=== PATIENT | male | born 1970 | race Caucasian/White ===

== ENCOUNTER 2018-10-10 21:29 | Inpatient (IN) | payer OTHER ==
[~2018-10-10] VITALS: Ht 170.2 cm; Wt 69.9 kg
[2018-10-10] MEDS ORDERED: MAGNESIUM HYDROXIDE 30 ML UDC PO PRN (23:00)
[2018-10-10] MEDS ORDERED: HYDROCODONE/APAP 5/325MG 1 EACH TABLET PO PRN (23:00)
[2018-10-10] MEDS ORDERED: MAG HYDROX/AL HYDROX/SIMETH 30 ML UDC PO PRN (23:00)
[2018-10-10] MEDS ORDERED: TEMAZEPAM 15 MG CAPSULE PO PRN (23:00)
[2018-10-10] MEDS ORDERED: HYDROCODONE/APAP 10/325MG 1 EA TABLET PO PRN (23:00)
[2018-10-10] MEDS ORDERED: ACETAMINOPHEN 325 MG TABLET PO PRN (23:00)
[2018-10-10] MEDS ORDERED: DEXTROSE 50%-WATER 50 ML DISP.SYRIN IV PRN (23:00)
[2018-10-10 23:20] VITALS: BP 139/95
--- NOTE | 2018-10-10 23:20 | NUR ---
RN ADMITTING NOTES RECEIVED PT DIRECT ADMIT FROM [facility] VIA GURNEY ACCOMPANIED BY 2 HAND PLUG SHAPER. PT AWAKE ALERT ORIENTEDX4, BREATHING EVEN AND UNLABORED ON ROOM AIR. IV ACCESS ON THE R FA 20G, AND L WRIST 22G. COMPLAINS OF ABDOMINAL PAIN "FROM VOMITING", SKIN ASSESSMENT COMPLETED. BED IN LOWEST LOCKED POSITION, CALL LIGHT WITHIN REACH AT ALL TIMES WILL CONTINUE TO MONITOR FREQUENTLY
[2018-10-11] MEDS ORDERED: INSU100I26 SQ (00:02)
[2018-10-11] MEDS ORDERED: ONDA4TAB5 PO (00:08)
[2018-10-11] MEDS ORDERED: INSU100C10 SQ (00:08)
[2018-10-11] MEDS ORDERED: ZOLP10TA2 PO (00:08)
[2018-10-11] MEDS ORDERED: GABA-536 PO (00:08)
[2018-10-11] MEDS ORDERED: HYDR-4384 PO (00:08)
[2018-10-11] MEDS ORDERED: ESCI10TA PO (00:08)
[2018-10-11] MEDS ORDERED: PANT20TA2 PO (00:08)
[2018-10-11] MEDS ORDERED: METO-295 PO (00:08)
[2018-10-11] MEDS: ONDANSETRON HCL/PF 4 MG/2 ML VIAL IVP PRN ×2 (00:45→11:56)
[2018-10-11] MEDS: IV NS 0.9% 1,000 ML IV PRN ×2 (00:46→10:39)
[2018-10-11 01:06] VITALS: BP 139/95
[2018-10-11] MEDS: HYDROMORPHONE 1 MG/1 ML DISP.SYRIN IV PRN ×3 (02:45→13:11)
[2018-10-11] MEDS ORDERED: HYDROCODONE/APAP 10/325MG 1 EA TABLET PO PRN (03:00)
--- NOTE | 2018-10-11 05:57 | NUR ---
GB CHECKED- 42- RECHECKED- 38, D50 ADMINISTERED, 10 MINUTES LATER BG 156, WILL CONTINUE TO MONITOR Addendum: 10/11/18 at 0615 by CYNTHIA CAMPUZANO RN BG*
--- NOTE | 2018-10-11 06:15 | NUR ---
RN MS CLOSING NOTES PT REMAINS IN BED, AWAKE ALERT ORIENTED X4, BREATHING EVEN AND UNLABORED ON ROOM AIR. NO COMPLIANT OF DISCOMFORT AT THE MOMENT. IV ACCESS SITES INTACT AND PATENT WITH NS @100ML/HR/ BED IN LOWEST LOCKED POSITION, CALL LIGHT WITHIN REACH AT ALL TIMES, WILL ENDORSE TO DAY NURSE FOR DUANE
[2018-10-11 06:26] LABS: BASOPHILS # (AUTO) 0.1 /CMM (0.0-0.2); BASOPHILS % (AUTO) 0.8 % (0.0-2.0); EOSINOPHILS % (AUTO) 2.6 % (0.0-6.0); HEMATOCRIT 32 % (39-51); HEMOGLOBIN 10.8 g/dL (13.5-17.5); LYMPHOCYTES # (AUTO) 2.4 /CMM (0.8-4.8); LYMPHOCYTES % (AUTO) 37.4 % (20.0-44.0); MEAN CORPUSCULAR HGB CONC 34 g/dl (31.0-36.0); MEAN CORPUSCULAR VOLUME 94 fL (80-96); MONOCYTES # (AUTO) 0.4 /CMM (0.1-1.30); MONOCYTES % (AUTO) 6.8 % (2.0-12.0); NEUTROPHILS # (AUTO) 3.4 /CMM (1.8-8.9); NEUTROPHILS % (AUTO) 52.4 % (43.0-81.0); PLATELET COUNT (AUTO) 156 /CMM (150-450); WHITE BLOOD COUNT (AUTO) 6.5 K/uL (4.3-11.0)
[2018-10-11] MEDS: BLOOD SUGAR DIAGNOSTIC 1 EACH STRIP IN SCH ×3 (06:50→17:08)
[2018-10-11 06:52] LABS: THYROID STIMULATING HORMONE 0.731 uIU/mL (0.358-3.74)
--- NOTE | 2018-10-11 07:20 | NUR ---
MS/RN OPENING NOTE PATIENT IN BED IN STABLE CONDITION. A/O X 4. NO SIGNS OF ACUTE DISTRESS. NO COMPLAIN OF PAIN OR DISCOMFORT AT THIS TIME . ALL NEEDS ATTENDED TO. CALL LIGHT WITHIN REACH. WILL CONTINUE TO MONITOR TO ENSURE SAFETY.
[2018-10-11 07:25] LABS: CREATININE 0.5 mg/dL (0.6-1.3); MAGNESIUM 1.9 mg/dL (1.8-2.4); PHOSPHORUS 2.1 mg/dL (2.5-4.9); POTASSIUM 3.9 mmol/L (3.5-5.1)
--- NOTE | 2018-10-11 07:38 | NUR ---
MS/RN RECEIVED CALL FROM JAD FROM LAB AND HE NOTIFIED PATIENT GLUCOSE NOTED 45LOW. RECHECKED BLOOD SUGAR AT BEDSIDE NOTED WITH BS 124. MD NOTIFIED. WILL CONTINUE TO MONITOR TO ENSURE SAFETY.
[2018-10-11 08:00] VITALS: BP 125/89
[2018-10-11 08:10] LABS: EOSINOPHILS % (MANUAL) 3 % (0-4); LYMPHOCYTES % (MANUAL) 30 % (16-48); MONOCYTES % (MANUAL) 9 % (0-11.0); NEUTROPHILS % (MANUAL) 58 (42-76)
[2018-10-11] MEDS ORDERED: GABAPENTIN 100 MG CAPSULE PO SCH (09:00)
[2018-10-11] MEDS ORDERED: ESCITALOPRAM OXALATE (10 MG) 10 MG TABLET PO SCH (09:00)
[2018-10-11] MEDS ORDERED: GABAPENTIN 400 MG CAPSULE PO SCH (09:00)
[2018-10-11] MEDS: GABAPENTIN 400 MG CAPSULE PO SCH ×2 (09:15→17:08)
[2018-10-11] MEDS: GABAPENTIN 100 MG CAPSULE PO SCH ×2 (09:16→17:08)
[2018-10-11] MEDS: INSULIN REGULAR, HUMAN 100 UNIT/ML 3 ML VIAL SQ PRN ×2 (11:57→17:11)
[2018-10-11] MEDS ORDERED: K PHOS NEUTRAL 250 MG TABLET PO ONE (12:00)
--- NOTE | 2018-10-11 13:45 | NUR ---
MS/RN SEEN AND EXAMINED BY DR ROMERO WITH ORDERS TO DC PATIENT HOME TODAY. PATIENT AWARE.
--- NOTE | 2018-10-11 18:57 | NUR ---
MS/LASTEX OPERATOR PATIENT DISCHARGE HOME IN STABLE CONDITION. A/O X 4. NO SIGNS OF ACUTE DISTRESS. NO COMPLAIN OF PAIN OR DISCOMFORT. DISCHARGE EDUCATION AND TEACHING PROVIDED, MADE AWARE TO FOLLOW UP WITH PRIMARY PHYSICIAN WITHIN A WEEK, PRESCRIPTION PROVIDED. VERBALIZED UNDERSTANDING. ALL NEEDS ATTENDED TO. NAME BAND AND IV LINE REMOVED. LEFT IN STABLE CONDITION VIA PRIVATE CAR ACCOMPANIED BY BROTHER.
[2018-10-11] MEDS ORDERED: INSULIN GLARGINE, 100 UNIT/ML CARTRIDGE SQ SCH ×2 (22:00)
== END 2018-10-11 18:55 | disposition home or self-care (01) | DRG 420 ==
LOC: MED 23:00
PROVIDERS: ADMIT Nurse Practitioner Acute Care
DX: E10.65 Type 1 diabetes mellitus with hyperglycemia (principal); E10.40 Type 1 diabetes mellitus with diabetic neuropathy, unspecified; E86.0 Dehydration; F32.9 Major depressive disorder, single episode, unspecified; K29.70 Gastritis, unspecified, without bleeding; Z79.4 Long term (current) use of insulin; Z87.11 Personal history of peptic ulcer disease; Z91.14 Patient's other noncompliance with medication regimen; F19.10 Other psychoactive substance abuse, uncomplicated
CPT/HCPCS: 36415; 80048-TC; 80061-TC; 82962-TC; 83735-TC; 84100-TC; 84443-TC; 85025-TC; 87081-TC; G0378; J1170; J1815; J2405; J7030

== ENCOUNTER 2018-10-18 21:41 | Inpatient (IN) | payer OTHER ==
[~2018-10-18] VITALS: Ht 170.2 cm; Wt 58.3 kg
--- NOTE | 2018-10-18 21:01 | NUR ---
MS/RN NOTES RECEIVED REPORT FROM ZEHRA REES AT [facility]. PER ZEHRA REES PT. ETA IS 45 MIN.
[~2018-10-18 21:41] MED LIST: ESCI10TA PO; GABA-536 PO; HYDR-4384 PO; INSU100C10 SQ; INSU100I26 SQ; METO-295 PO; ONDA4TAB5 PO; PANT20TA2 PO; ZOLP10TA2 PO
[2018-10-18 21:50] VITALS: BP 142/80
--- NOTE | 2018-10-18 21:50 | NUR ---
MS/RN NOTES RECEIVED PT. VIA [place] FROM [facility]. PT. IS AWAKE, ALERT AND ORIENTED X3. BREATHING EVEN AND UNLABORED ON ROOM AIR. NO SOB, RESPIRATORY DISTRESS NOTED AT THIS TIME. PT. COMPLAINING OF ABDOMINAL PAIN 09/18. PT. WITH LEFT AC 20 GAUGE IV SALINE LOCK PRESENT, PATENT AND INTACT. PT. WITH RIGHT AC 22 GAUGE IV SALINE LOCK PRESENT, PATENT AND INTACT. ORIENTED PT. TO ROOM. AWAITING ADMITTING ORDERS. BED LOCKED AND IN LOWEST POSITION, SIDE RAILS UP X2, CALL LIGHT WITHIN REACH, WILL CONTINUE TO MONITOR.
[2018-10-18] MEDS ORDERED: PANT40TA4 PO (22:49)
[2018-10-18] MEDS ORDERED: SUCR1TAB PO ×2 (23:03)
[2018-10-19] MEDS ORDERED: DEXTROSE 50%-WATER 50 ML DISP.SYRIN IV PRN
[2018-10-19] MEDS ORDERED: Z GUARD REMEDY 2 OZ OINT TP PRN
[2018-10-19] MEDS ORDERED: ACETAMINOPHEN 325 MG TABLET PO PRN
[2018-10-19] MEDS ORDERED: MAGNESIUM HYDROXIDE 30 ML UDC PO PRN
[2018-10-19] MEDS ORDERED: *INSULIN REGULAR(HUMULIN R)HUM 100 UNIT/ML VIAL SQ PRN
[2018-10-19] MEDS ORDERED: HYDROCODONE/APAP 5/325MG 1 EACH TABLET PO PRN
[2018-10-19] MEDS ORDERED: MAG HYDROX/AL HYDROX/SIMETH 30 ML UDC PO PRN
[2018-10-19] MEDS ORDERED: ONDANSETRON HCL/PF 4 MG/2 ML VIAL IVP PRN
[2018-10-19] MEDS: SUCRALFATE 1 G TABLET PO SCH ×5 (00:18→23:10)
--- NOTE | 2018-10-19 00:19 | NUR ---
MS/RN NOTES HELD PT. 0000 SCHEDULED LANTUS MEDICATION BECAUSE PT. CURRENT BLOOD SUGAR IS 104 MG/DL. NO S/S OF HYPO/HYPERGLYCEMIA NOTED AT THIS TIME. WILL CONTINUE TO MONITOR.
--- NOTE | 2018-10-19 00:32 | NUR ---
MS/RN NOTES NOTIFIED EPIC OXYGEN THERAPY TECHNICIAN FLAKER OPERATOR DANIELLE PT. IS COMPLAINING OF ABDOMINAL PAIN 8/10 AND REFUSING NORCO PAIN MEDICATION. PT. IS STATING HE WANTS MORPHINE, AND THAT HE WAS GIVEN MORPHINE 4MG AT [facility] 1928–1983 AND PER THE PATIENT IT REALLY HELPED THE LOWER HIS ABDOMINAL PAIN. PER SOTO SANTOS NEW ORDER: MORPHINE 4MG IV PUSH Q4 HOUR PRN SEVERE PAIN 8-10. WILL CARRY OUT ORDER. WILL CONTINUE TO MONITOR.
[2018-10-19] MEDS: MORPHINE SULFATE INJ 4 MG/ML DISP.SYRIN IV PRN ×6 (00:45→23:28)
[2018-10-19] MEDS: ZOLPIDEM TARTRATE 10 MG TABLET PO SCH ×2 (01:53→21:50)
[2018-10-19] MEDS: IV NS 0.9% 1,000 ML IV PRN ×2 (02:02→17:42)
--- NOTE | 2018-10-19 06:13 | NUR ---
MS/RN NOTES PT. IS LYING IN BED AWAKE, ALERT AND ORIENTED X3. BREATHING EVEN AND UNLABORED ON ROOM AIR. NO SOB, RESPIRATORY DISTRESS NOTED AT THIS TIME. PT. COMPLAINING OF ABDOMINAL PAIN 01/18, RECENTLY ADMINISTERED TO PT. MORPHINE PAIN MEDICATION ORDERED. PT. WITH LEFT AC 20 GAUGE IV SALINE LOCK PRESENT, PATENT AND INTACT. PT. WITH RIGHT AC 22 GAUGE PERIPHERAL IV PRESENT, PATENT AND INTACT ADMINISTERING TO PT. NS @ 75 ML/HR. ALL PT. NEEDS MET. BED LOCKED AND IN LOWEST POSITION, SIDE RAILS UP X2, CALL LIGHT WITHIN REACH, WILL ENDORSE TO DAYSHIFT NURSE FOR CONTINUITY OF CARE.
[2018-10-19] MEDS: BLOOD SUGAR DIAGNOSTIC 1 EACH STRIP IN SCH ×4 (06:38→22:10)
[2018-10-19] MEDS: INSULIN REGULAR, HUMAN 100 UNIT/ML 3 ML VIAL SQ PRN ×3 (06:40→17:29)
[2018-10-19 07:18] LABS: BASOPHILS # (AUTO) 0.1 /CMM (0.0-0.2); BASOPHILS % (AUTO) 0.8 % (0.0-2.0); EOSINOPHILS % (AUTO) 1.7 % (0.0-6.0); HEMATOCRIT 30 % (39-51); HEMOGLOBIN 10.2 g/dL (13.5-17.5); LYMPHOCYTES # (AUTO) 2.2 /CMM (0.8-4.8); LYMPHOCYTES % (AUTO) 30.8 % (20.0-44.0); MEAN CORPUSCULAR HGB CONC 34 g/dl (31.0-36.0); MEAN CORPUSCULAR VOLUME 94 fL (80-96); MONOCYTES # (AUTO) 0.4 /CMM (0.1-1.30); MONOCYTES % (AUTO) 5.9 % (2.0-12.0); NEUTROPHILS # (AUTO) 4.4 /CMM (1.8-8.9); NEUTROPHILS % (AUTO) 60.8 % (43.0-81.0); PLATELET COUNT (AUTO) 203 /CMM (150-450); WHITE BLOOD COUNT (AUTO) 7.3 K/uL (4.3-11.0)
--- NOTE | 2018-10-19 07:37 | NUR ---
RN OPENING NOTE PT WAS RECEIVED IN BED AT LOWEST AND LOCKED POSITION WITH SIDE RAILS UP X2, BREATHING EVEN AND UNLABORED ON RA, NO S/S OF ANY PAIN OR DISTRESS AT THIS TIME, IV IS PATENT AND INTACT, SAFETY PRECAUTIONS IN PLACE, CALL LIGHT WITHIN REACH, WILL MONITOR PT ACCORDINGLY
[2018-10-19 07:48] LABS: ALBUMIN 3.2 g/dL (3.4-5.0); BILIRUBIN,TOTAL 0.5 mg/dL (0.2-1.0); CALCIUM, SERUM 8.4 mg/dL (8.5-10.1); CREATININE 0.7 mg/dL (0.6-1.3); MAGNESIUM 1.8 mg/dL (1.8-2.4); PHOSPHORUS 1.5 mg/dL (2.5-4.9); POTASSIUM 3.4 mmol/L (3.5-5.1); TOTAL PROTEIN, SERUM 5.9 g/dL (6.4-8.2)
[2018-10-19 07:55] LABS: THYROID STIMULATING HORMONE 1.373 uIU/mL (0.358-3.74)
[2018-10-19 08:00] VITALS: BP 125/76
[2018-10-19] MEDS: PANTOPRAZOLE 40 MG TABLET.DR PO SCH (08:01)
[2018-10-19] MEDS: ESCITALOPRAM OXALATE (10 MG) 10 MG TABLET PO SCH (08:01)
[2018-10-19] MEDS: GABAPENTIN 100 MG CAPSULE PO SCH ×3 (08:01→17:04)
[2018-10-19] MEDS ORDERED: PANTOPRAZOLE 40 MG TABLET.DR PO SCH (09:00)
[2018-10-19] MEDS ORDERED: POTASSIUM CHLORIDE 20 MEQ TAB.PRT.SR PO SCH (09:30)
[2018-10-19] MEDS ORDERED: K PHOS NEUTRAL 250 MG TABLET PO ONE (09:30)
[2018-10-19 16:00] VITALS: BP 129/85
[2018-10-19] MEDS ORDERED: diphenhydrAMINE HCL 50 MG/ML VIAL ONE (17:04)
[2018-10-19] MEDS ORDERED: OLANZAPINE 10 MG VIAL IM ONE (17:04)
[2018-10-19] MEDS ORDERED: LORAZEPAM INJ 2 MG/ML VIAL ONE (17:05)
--- NOTE | 2018-10-19 18:11 | NUR ---
RN CLOSING NOTE PT IN BED AT LOWEST AND LOCKED POSITION WITH SIDE RAILS UP X2, BREATHING EVEN AND UNLABORED ON RA RESTING COMFORTABLY IN BED, IV IS PATENT AND INTACT, ALL NEEDS ATTENDED TO, SAFETY PRECAUTIONS IN PLACE, CALL LIGHT WITHIN REACH, WILL ENDORSE TO SENIOR COMMISSIONS ANALYST RN FOR DUANE.
--- NOTE | 2018-10-19 19:00 | NUR ---
RN MS OPENING NOTES RECEIVED PATIENT IN BED AWAKE ALERT AND ORIENTEDX4, RESPIRATIONS EVEN AND UNLABORED WITH EQUAL RISE AND FALL OF CHEST, COMPLAINT OF PAIN TO ABDOMEN AREA ACHY 01/18, OFFERED PAIN MEDICATION. LEFT AC #20G AND RIGHT AC #22 G INTACT AND PATENT, NO REDNESS, NO INFILTRATION PRESENT, IVF RUNNING ORDERED, ORIENTED TO STAFF AND CALL LIGHT AND KEPT WITHIN REACH, SAFETY PRECAUTIONS IN PLACE, LOW BED AND LOCKED, URINAL AT BEDSIDE, ALL NEEDS ATTENDED AT THIS TIME, WILL CONTINUE TO MONITOR AND ATTEND TO NEEDS.
--- NOTE | 2018-10-19 19:22 | NUR ---
RN MS NOTES PATIENT COMPLAINT OF PAIN TO ABDOMEN AREA STATES "ACHY PAIN 8/10" REQUESTING FOR MORPHINE. VS ASSESSES WNL.128/83,75,100%RA,18. MORPHINE PRN ORDERED GIVEN WILL CONTINUE TO MONITOR FOR EFFECTIVENESS.
[2018-10-19 20:00] VITALS: BP 128/83
[2018-10-19] MEDS: INSULIN GLARGINE, 100 UNIT/ML CARTRIDGE SQ SCH ×2 (22:06)
--- NOTE | 2018-10-19 23:28 | NUR ---
RN MS NOTES PATIENT C/O PAIN 7/10 TO ABDOMEN AREA REQUESTING FOR MORPHINE PRN VS WNL PRN MORPHINE GIVEN ORDERED, DIMMED LIGHTS WILL CONTINUE TO MONITOR.
--- NOTE | 2018-10-20 02:59 | NUR ---
RN MS NOTES PATIENT REQUEST TO CHECK ACCUCHECK 90.
[2018-10-20] MEDS: MORPHINE SULFATE INJ 4 MG/ML DISP.SYRIN IV PRN ×2 (03:32→08:11)
--- NOTE | 2018-10-20 03:32 | NUR ---
RN MS NOTES PATIENT COMPLAINT OF PAIN 7/10 TO ABDOMEN REQUESTING FOR MORPHINE VS WNL PRN MORPHINE GIVEN ORDERED, WILL CONTINUE TO MONITOR.
[2018-10-20] MEDS: SUCRALFATE 1 G TABLET PO SCH ×2 (06:05→11:59)
[2018-10-20] MEDS: BLOOD SUGAR DIAGNOSTIC 1 EACH STRIP IN SCH ×2 (06:10→12:03)
--- NOTE | 2018-10-20 06:28 | NUR ---
RN MS CLOSING NOTES PATIENT IN BED AWAKE ALERT AND ORIENTEDX4, RESPIRATIONS EVEN AND UNLABORED WITH EQUAL RISE AND FALL OF CHEST, DENIES ANY PAIN TO ABDOMEN AREA AT THIS TIME, OFFERED PAIN MEDICATION THROUGHOUT SHIFT. LEFT AC #20G AND RIGHT AC #22 G INTACT AND PATENT, NO REDNESS, NO INFILTRATION PRESENT, IVF RUNNING ORDERED, CALL LIGHT KEPT WITHIN REACH, SAFETY PRECAUTIONS IN PLACE, LOW BED AND LOCKED, URINAL AT BEDSIDE, ALL NEEDS ATTENDED AT THIS TIME, WILL CONTINUE TO MONITOR AND ATTEND TO NEEDS AND ENDORSE TO NEXT SHIFT. NO CHANGES THROUGHOUT SHIFT.
[2018-10-20 07:04] LABS: CALCIUM, SERUM 8.7 mg/dL (8.5-10.1); CREATININE 0.7 mg/dL (0.6-1.3); MAGNESIUM 1.9 mg/dL (1.8-2.4); PHOSPHORUS 2.3 mg/dL (2.5-4.9); POTASSIUM 3.6 mmol/L (3.5-5.1)
[2018-10-20] MEDS: PANTOPRAZOLE 40 MG TABLET.DR PO SCH (07:37)
[2018-10-20 08:00] VITALS: BP 141/90
[2018-10-20] MEDS: ESCITALOPRAM OXALATE (10 MG) 10 MG TABLET PO SCH (08:10)
[2018-10-20] MEDS: GABAPENTIN 100 MG CAPSULE PO SCH ×2 (08:10→13:00)
[2018-10-20 09:12] LABS: BASOPHILS % (AUTO) 0.9 % (0.0-2.0); EOSINOPHILS % (AUTO) 3.4 % (0.0-6.0); HEMATOCRIT 33 % (39-51); HEMOGLOBIN 10.9 g/dL (13.5-17.5); LYMPHOCYTES % (AUTO) 36.4 % (20.0-44.0); MEAN CORPUSCULAR HGB CONC 34 g/dl (31.0-36.0); MEAN CORPUSCULAR VOLUME 94 fL (80-96); MONOCYTES # (AUTO) 0.3 /CMM (0.1-1.30); MONOCYTES % (AUTO) 6.2 % (2.0-12.0); NEUTROPHILS # (AUTO) 2.9 /CMM (1.8-8.9); NEUTROPHILS % (AUTO) 53.1 % (43.0-81.0); PLATELET COUNT (AUTO) 202 /CMM (150-450); RED BLOOD CELL COUNT(AUTO) 3.47 MIL/uL (4.5-6.0); WHITE BLOOD COUNT (AUTO) 5.4 K/uL (4.3-11.0)
[2018-10-20] MEDS ORDERED: K PHOS NEUTRAL 250 MG TABLET PO ONE (10:00)
[2018-10-20] MEDS: INSULIN REGULAR, HUMAN 100 UNIT/ML 3 ML VIAL SQ PRN (12:03)
[2018-10-20 13:30] VITALS: BP 120/82
--- NOTE | 2018-10-20 14:41 | NUR ---
RN note Patient discharged home to self care , general condition stable on dc , c/o see vital signs , dc instructions given pt verbalised understanding , heplock removed
== END 2018-10-20 14:30 | disposition home or self-care (01) | DRG 420 ==
LOC: MED 21:41
PROVIDERS: ADMIT Hospitalist; ATTEND Hospitalist
DX: E11.65 Type 2 diabetes mellitus with hyperglycemia (principal); E11.42 Type 2 diabetes mellitus with diabetic polyneuropathy; Z91.14 Patient's other noncompliance with medication regimen; Z87.11 Personal history of peptic ulcer disease; F32.9 Major depressive disorder, single episode, unspecified; Z79.4 Long term (current) use of insulin; Z79.899 Other long term (current) drug therapy; F19.10 Other psychoactive substance abuse, uncomplicated; Z91.19 Patient's noncompliance with other medical treatment and regimen
CPT/HCPCS: 36415; 80048-TC; 80053-TC; 80061-TC; 82962-TC; 83735-TC; 84100-TC; 84443-TC; 85025-TC; 87081-TC; G0378; J1200; J1815; J2060; J2270; J2405; J3490; J7030

== ENCOUNTER 2018-10-28 20:00 | Inpatient (IN) ==
[~2018-10-28] VITALS: Ht 170.2 cm; Wt 59.0 kg
[~2018-10-28 20:00] MED LIST changes: -INSU100C10 SQ; -INSU100I26 SQ; -PANT20TA2 PO; +PANT40TA4 PO; +SUCR1TAB PO
--- NOTE | 2018-10-29 01:00 | NUR ---
RN MS ADMISSION NOTES RECEIVED PATIENT DIRECT ADMIT FROM [facility]. DX. ILEUS. CHIEF COMPLAINTS: ABD PAIN WITH N/V. PATIENT IS ALERT AND ORIENTED X4, VERBALLY RESPONSIVE ABLE TO MAKE NEEDS KNOWN. BREATHING EVEN AND UNLABORED. NO SOB NOTED. TOLERATING ROOM AIR. WITH COMPLAINTS OF ABDOMEN PAIN 10/10 AND REQUESTING FOR PAIN MEDICATION. INFORMED PATIENT THAT MD IS IN THE PROCESS OF PUTTING IN ADMISSION ORDERS AND WILL GIVE PRN MEDICATION WHEN IT IS AVAILABLE - PATIENT VERBALIZED UNDERSTANDING. IV ON RIGHT FOREARM G#20 INTACT AND PATENT. SKIN DRY AND WARM TO TOUCH. AFEBRILE. SKIN ASSESSMENT RENDERED WITH PICTURES TAKEN AND PLACED IN CHART. ORIENTED TO THE USE OF UNIT AMENITIES. INSTRUCTED ON THE USE OF CALL LIGHT. BELONGINGS ACCOUNTED FOR. ALL OTHER NEEDS MET, SAFETY MEASURES IN PLACE. CALL LIGHT WITHIN REACH. WILL CONTINUE TO MONITOR.
[2018-10-29] MEDS ORDERED: INSU100V7 SQ (01:16)
[2018-10-29] MEDS ORDERED: HYDROCODONE/APAP 10/325MG 1 EA TABLET PO ONE (01:30)
[2018-10-29 01:57] VITALS: BP 151/98
[2018-10-29] MEDS ORDERED: ONDANSETRON HCL/PF 4 MG/2 ML VIAL IVP PRN (02:30)
[2018-10-29] MEDS ORDERED: MAGNESIUM HYDROXIDE 30 ML UDC PO PRN (02:30)
[2018-10-29] MEDS ORDERED: HYDROCODONE/APAP 5/325MG 1 EACH TABLET PO PRN (02:30)
[2018-10-29] MEDS ORDERED: ACETAMINOPHEN 325 MG TABLET PO PRN (02:30)
[2018-10-29] MEDS ORDERED: *INSULIN REGULAR(HUMULIN R)HUM 100 UNIT/ML VIAL SQ PRN (02:30)
[2018-10-29] MEDS ORDERED: MAG HYDROX/AL HYDROX/SIMETH 30 ML UDC PO PRN (02:30)
[2018-10-29] MEDS: HYDROMORPHONE INJ 2 MG/ML DISP.SYRIN IV PRN ×5 (02:44→21:34)
[2018-10-29] MEDS: IV NS 0.9% 1,000 ML IV PRN ×3 (04:04→21:28)
--- NOTE | 2018-10-29 06:30 | NUR ---
RN MS NOTES PATIENT'S BS 260 DESPITE NOT EATING. PATIENT CURRENTLY NPO STATUS. INSULIN NOT GIVEN. ALSO PER PATIENT, THAT LAST TIME HE WAS NPO STATUS WITH A HIGH BLOOD SUGAR, A NURSE GAVE HIM INSULIN AND HIS BS WENT ALL THE WAY DOWN TO THE 50'S AND HE HAD TO RECEIVED DEXTROSE. WILL CONTINUE TO MONITOR.
--- NOTE | 2018-10-29 06:42 | NUR ---
RN MS CLOSING NOTES PATIENT RESTING IN BED. NO ACUTE CHANGES THROUGHOUT SHIFT. IN NO DISTRESS. NO SOB. TOLERATING ROOM AIR. CURRENTLY WITH NO COMPLAINTS OF PAIN OR DISCOMFORT. PRN PAIN MEDICATIONS GIVEN. PATIENT FELT RELIEF FROM DILAUDID. IV ON RIGHT FOREARM INTACT AND PATENT WITH IVF INFUSING. ALL OTHER NEEDS MET. SAFETY MEASURES IN PLACE. CALL LIGHT WITHIN REACH. WILL ENDORSE TO ONCOMING NURSE FOR DUANE.
[2018-10-29] MEDS: INSULIN REGULAR, HUMAN 100 UNIT/ML 3 ML VIAL SQ PRN ×2 (06:45→12:27)
[2018-10-29] MEDS: BLOOD SUGAR DIAGNOSTIC 1 EACH STRIP VI SCH ×4 (06:45→21:56)
--- NOTE | 2018-10-29 07:36 | NUR ---
MS/RN Patient received Patient received from harvest manager, sleeping soundly, appears in no distress or discomfort. Safety measures in place, call light within reach. Will continue to monitor and ensure safety.
[2018-10-29] MEDS: PANTOPRAZOLE 40 MG TABLET.DR PO SCH (07:59)
[2018-10-29] MEDS: SUCRALFATE 1 G TABLET PO SCH ×4 (07:59→21:07)
[2018-10-29 08:00] VITALS: BP 146/98
[2018-10-29] MEDS: ESCITALOPRAM OXALATE (10 MG) 10 MG TABLET PO SCH (08:02)
[2018-10-29] MEDS: GABAPENTIN 100 MG CAPSULE PO SCH ×3 (08:02→16:28)
--- NOTE | 2018-10-29 08:14 | NUR ---
WOUND CARE CONSULT: PT PRESENTS WITH DRY LESIONS TO LOWER LEGS AND REDNESS/BRUISING TO RT UPPER ARM, PRESENT ON ADMISSION. PT STATES REDNESS WITH BRUISING ON RT UPPER ARM IS FROM IV AT PREVIOUS FACILITY. DEFER TO MD FOR RT UPPER ARM AND LOWER LEG LESIONS. WILL SEE PRN. PT IS CONTINENT AND INDEPENDENT WITH BED MOBILITY. CURRENT SARAH SCORE 19.
--- NOTE | 2018-10-29 12:00 | NUR ---
MS/RN Blood sugar Blood sugar at noon 320, per sliding scale 12 units of regular insulin to be administered.
--- NOTE | 2018-10-29 14:00 | NUR ---
MS/RN S/B Ravi Gamez DNP Seen by COMIC BOOK WRITER - start on clear liquids and await GI evaluation.
--- NOTE | 2018-10-29 15:59 | NUR ---
MS/RN Hypertensive Patient noted to be hypertensive at 162/102, no blood pressure medications ordered. Ravi Gamez DNP notified, awaiting orders.
[2018-10-29 16:00] VITALS: BP_SYST 120; BP_SYST 162; BP_DIAS 102; BP_DIAS 71
[2018-10-29 16:02] VITALS: BP 162/102
[2018-10-29] MEDS ORDERED: hydrALAZINE HCL IV 20 MG VIAL IV PRN (16:30)
--- NOTE | 2018-10-29 16:38 | NUR ---
MS/RN Orders Hydralazine 10mg given for blood pressure of 162/102. Will recheck BP in 30 minutes.
--- NOTE | 2018-10-29 17:15 | NUR ---
MS/RN BP recheck Blood pressure rechecked - 120/71
--- NOTE | 2018-10-29 18:32 | NUR ---
MS/RN End note Seen by GI - awaiting orders. Blood sugar at 1700 - 256, insulin coverage given as per sliding scale. Will endorse to drying room attendant.
--- NOTE | 2018-10-29 19:18 | NUR ---
MS RN NOTE RECEIVED PT IN STABLE CONDITION A&O X4, ABLE TO MAKE NEEDS KNOWN. CURRENTLY IN BED WATCHING TV. NO SIGNS OF SOB OR DISTRESS, NO C/O PAIN. ALL CURRENT NEEDS ATTENDED TO. BED LOW, LOCKED, UPPER RAILS UP, AND CALL LIGHT WITHIN REACH. WILL CONT. TO MONITOR.
[2018-10-29 20:46] VITALS: BP 122/75
[2018-10-29] MEDS: METOCLOPRAMIDE HCL 10 MG/2 ML VIAL IV SCH (21:07)
[2018-10-29] MEDS: INSULIN GLARGINE, 100 UNIT/ML CARTRIDGE SQ SCH (21:36)
[2018-10-29] MEDS: ZOLPIDEM TARTRATE 5 MG TABLET PO PRN (23:21)
[2018-10-30] MEDS: METOCLOPRAMIDE HCL 10 MG/2 ML VIAL IV SCH ×4 (06:13→23:10)
--- NOTE | 2018-10-30 06:21 | NUR ---
MS RN NOTE PT NOTED WITH BS OF 43, WHEN RECHECKED BS WAS 49, OJ GIVEN AND D50 PULLED FROM PYXIS. D50 GIVEN AT 0622. CURRENTLY WITH PT AT BEDSIDE FOR CONT. MONITORING.
[2018-10-30] MEDS: DEXTROSE 50%-WATER 50 ML DISP.SYRIN IV PRN ×2 (06:22→13:42)
[2018-10-30] MEDS: BLOOD SUGAR DIAGNOSTIC 1 EACH STRIP VI SCH ×4 (06:40→21:59)
--- NOTE | 2018-10-30 06:56 | NUR ---
MS RN NOTE BS RECHECKED TO 131.
--- NOTE | 2018-10-30 06:57 | NUR ---
MS RN NOTE PT IN STABLE CONDITION A&O X4, ABLE TO MAKE NEEDS KNOWN. CURRENTLY IN BED WATCHING TV. NO SIGNS OF SOB OR DISTRESS, NO C/O PAIN. ALL CURRENT NEEDS ATTENDED TO. BED LOW, LOCKED, UPPER RAILS UP, AND CALL LIGHT WITHIN REACH. WILL CONT. TO MONITOR AND ENDORSE TO NEXT SHIFT FOR DUANE.
--- NOTE | 2018-10-30 07:00 | NUR ---
RN OPENING NOTES RECEIVED PT IN STABLE CONDITION A&O X4, ABLE TO MAKE NEEDS KNOWN. NO SIGNS OF SOB OR DISTRESS, NO C/O PAIN. ALL CURRENT NEEDS ATTENDED TO. BED LOW, LOCKED, UPPER RAILS UP, AND CALL LIGHT WITHIN REACH. WILL CONTINUE TO MONITOR ACCORDINGLY
[2018-10-30 07:15] LABS: BASOPHILS # (AUTO) 0.1 /CMM (0.0-0.2); BASOPHILS % (AUTO) 1.1 % (0.0-2.0); EOSINOPHILS % (AUTO) 3.4 % (0.0-6.0); HEMATOCRIT 33 % (39-51); LYMPHOCYTES # (AUTO) 1.6 /CMM (0.8-4.8); LYMPHOCYTES % (AUTO) 34.4 % (20.0-44.0); MEAN CORPUSCULAR HGB CONC 34 g/dl (31.0-36.0); MEAN CORPUSCULAR VOLUME 95 fL (80-96); MONOCYTES # (AUTO) 0.4 /CMM (0.1-1.30); MONOCYTES % (AUTO) 9.1 % (2.0-12.0); NEUTROPHILS # (AUTO) 2.5 /CMM (1.8-8.9); PLATELET COUNT (AUTO) 284 /CMM (150-450); RED BLOOD CELL COUNT(AUTO) 3.46 MIL/uL (4.5-6.0); WHITE BLOOD COUNT (AUTO) 4.7 K/uL (4.3-11.0)
[2018-10-30 07:23] LABS: ALBUMIN 3.2 g/dL (3.4-5.0); BILIRUBIN,TOTAL 0.4 mg/dL (0.2-1.0); CALCIUM, SERUM 8.2 mg/dL (8.5-10.1); CREATININE 0.7 mg/dL (0.6-1.3); MAGNESIUM 1.8 mg/dL (1.8-2.4); PHOSPHORUS 2.1 mg/dL (2.5-4.9); POTASSIUM 3.3 mmol/L (3.5-5.1)
[2018-10-30] MEDS: SUCRALFATE 1 G TABLET PO SCH ×4 (07:47→21:59)
[2018-10-30] MEDS: PANTOPRAZOLE 40 MG TABLET.DR PO SCH (07:47)
[2018-10-30] MEDS: HYDROMORPHONE INJ 2 MG/ML DISP.SYRIN IV PRN ×4 (07:49→21:24)
[2018-10-30 08:00] VITALS: BP 148/88
[2018-10-30] MEDS: ESCITALOPRAM OXALATE (10 MG) 10 MG TABLET PO SCH (08:36)
[2018-10-30] MEDS: GABAPENTIN 100 MG CAPSULE PO SCH ×3 (09:01→17:20)
[2018-10-30] MEDS ORDERED: POTASSIUM CHLORIDE 20 MEQ TAB.PRT.SR PO SCH (11:30)
[2018-10-30] MEDS ORDERED: NEUTRA PHOS 1 POWD.PACKET PO ONE (12:00)
[2018-10-30] MEDS ORDERED: K PHOS NEUTRAL 250 MG TABLET PO ONE (12:00)
--- NOTE | 2018-10-30 13:10 | NUR ---
RN NOTES ACCUCHECK DONE. BS= 55, 4048: ADMINISTERED D50. WILL REASSESS ACCORDINGLY
--- NOTE | 2018-10-30 15:00 | NUR ---
RN NOTES NOTIFIED SURESH SANTOS OF PATIENT'S GLUCOSE LEVEL BEING LOW. CHANGE IVF NS TO D5NS PER MD. NOTED AND WILL CARRY OUT
--- NOTE | 2018-10-30 15:10 | NUR ---
RECHECKED VN=230 MD AWARE.
[2018-10-30 16:00] VITALS: BP 127/84
[2018-10-30] MEDS: IV D5/ 0.9% NACL 1,000 ML IV PRN (17:01)
--- NOTE | 2018-10-30 18:15 | NUR ---
alysia guthrie at bedside talking to patient. patient clear for discharge if diet is tolerated. orders of advance diet as tolerated noted.
--- NOTE | 2018-10-30 18:36 | NUR ---
RN CLOSING NOTES PATIENT IN STABLE CONDITION. ALL NEEDS ATTENDED AND PROVIDED. ALL DUE MEDICATIONS GIVAN OREDER. ASSISTED PATIENT WITH ADLS. KEPT PATIENT SAFE AND COMFORTABLE. BED IN LOW,LOCKED, SIDERAILS UPX2,CALL LIGHT IN REACH. WILL ENDORSED TO NIGHT RN FOR DUANE
--- NOTE | 2018-10-30 19:20 | NUR ---
MS RN NOTE RECEIVED PT IN STABLE CONDITION A&O X4, ABLE TO MAKE NEEDS KNOWN. CURRENTLY WALKING AROUND IN ROOM WITH WALKER. NO SIGNS OF SOB OR DISTRESS, NO C/O PAIN. ALL CURRENT NEEDS ATTENDED TO. BED LOW, LOCKED, UPPER RAILS UP, AND CALL LIGHT WITHIN REACH. WILL CONT. TO MONITOR.
[2018-10-30 21:44] VITALS: BP 102/71
[2018-10-30] MEDS: INSULIN GLARGINE, 100 UNIT/ML CARTRIDGE SQ SCH (22:00)
--- NOTE | 2018-10-30 22:20 | NUR ---
MS RN NOTE 2200 BLOOD SUGAR CHECKED WITH RESULT OF 136. YOHANA HELD D/T HYPOGLYCEMIC EPISODE IN AM AND AFTERNOON. WILL CONT. TO MONITOR.
[2018-10-30] MEDS: ZOLPIDEM TARTRATE 5 MG TABLET PO PRN (23:10)
[2018-10-31] MEDS: HYDROMORPHONE INJ 2 MG/ML DISP.SYRIN IV PRN ×4 (02:12→20:18)
[2018-10-31] MEDS: METOCLOPRAMIDE HCL 10 MG/2 ML VIAL IV SCH ×3 (05:49→17:00)
[2018-10-31] MEDS: IV D5/ 0.9% NACL 1,000 ML IV PRN ×2 (05:56→17:06)
[2018-10-31] MEDS: BLOOD SUGAR DIAGNOSTIC 1 EACH STRIP VI SCH ×3 (06:30→16:59)
[2018-10-31] MEDS: INSULIN REGULAR, HUMAN 100 UNIT/ML 3 ML VIAL SQ PRN ×3 (06:39→17:10)
[2018-10-31 07:14] LABS: CALCIUM, SERUM 8.5 mg/dL (8.5-10.1); CREATININE 0.7 mg/dL (0.6-1.3); PHOSPHORUS 2.4 mg/dL (2.5-4.9); POTASSIUM 3.5 mmol/L (3.5-5.1)
[2018-10-31 08:00] VITALS: BP 150/76
--- NOTE | 2018-10-31 08:00 | NUR ---
RN AM NOTES RECEIVED PT IN STABLE CONDITION A&O X4, ABLE TO MAKE NEEDS KNOWN. NO SIGNS OF SOB OR DISTRESS, NO C/O PAIN. WITH ONGOING IVF INFUSING WELL.NEEDS ATTENDED. BED LOW, LOCKED, UPPER RAILS UP, AND CALL LIGHT WITHIN REACH. WILL CONTINUE TO MONITOR ACCORDINGLY
[2018-10-31] MEDS: GABAPENTIN 100 MG CAPSULE PO SCH ×3 (08:26→16:55)
[2018-10-31] MEDS: ESCITALOPRAM OXALATE (10 MG) 10 MG TABLET PO SCH (08:26)
[2018-10-31] MEDS: PANTOPRAZOLE 40 MG TABLET.DR PO SCH (08:26)
[2018-10-31] MEDS: SUCRALFATE 1 G TABLET PO SCH ×3 (08:26→16:55)
[2018-10-31] MEDS ORDERED: K PHOS NEUTRAL 250 MG TABLET PO ONE (13:00)
[2018-10-31 16:00] VITALS: BP 155/90
--- NOTE | 2018-10-31 18:30 | NUR ---
PT WAS CLEARED BY GI ART THERAPY CERTIFIED SUPERVISOR,GARRICK AND JUST TO F/U WITH GI FOR EGD/COLONOSCOPY OUTPATIENT.DENIES ANY DISTRESS AT THIS TIME.CALL LIGHT PLACED WITHIN REACH.
--- NOTE | 2018-10-31 19:30 | NUR ---
RECEIVED PATIENT IN BED AWAKE. AO X 3, ABLE TO MAKE NEEDS KNOWN. NO ACUTE DISTRESS NOTED. MONITORED FOR PAIN. IV SITES PATENT, INTACT; IVF INFUSING ORDERED. SAFETY REMINDERS GIVEN. ON LOW BED WITH BILATERAL UPPER SIDE RAILS UP. CALL TATE WITHIN EASY REACH. WILL CONTINUE TO MONITOR.
[2018-10-31 20:00] VITALS: BP 150/88
--- NOTE | 2018-10-31 21:52 | NUR ---
PATIENT WAS GIVEN DISCHARGE INSTRUCTIONS AND SIGNED DISCHARGE PAPER. PATIENT VERBALIZED UNDERSTANDING DISCHARGE EDUCATION. PATIENT CONTINUES TO BE IN STABLE CONDITION. VERBALIZED RELIEF FROM PAIN POST DILAUDID ADMINISTRATION. DENIES DIZZINESS AND WEAKNESS. PATIENT AMBULATING WITH STEADY GAIT. NO SYMPTOMS OF HYPER/HYPOGLYCEMIA. PHOTOS TAKEN OF SKIN ISSUES. IV SITES DCD. ARMBAND TAKEN OUT. BELONGINGS ACCOUNTED FOR, PACKED, AND GIVEN TO PATIENT. PATIENT ESCORTED TO EXIT VIA WHEELCHAIR BY HOSE MENDER. PATIENT'S BROTHER WILL BE WAITING AT HOSPITAL EXIT.
--- NOTE | 2018-11-01 23:48 | NUR ---
INFORMATION SENT: FACESHEET , DISCHARGE SUMMARY INSURANCE NAME: [facility] FAX NUMBER: [phone] / [phone] FAX SENT BY JUNE LEPE
[2018-11-02 15:14] LABS: *ANCANTIMYELOPEROXIDASE (MPO) <9.0 U/mL (0.0-9.0); *ANCANTIPROTEINASE 3 (PR-3) AB <3.5 U/mL (0.0-3.5)
[2018-11-04 14:11] LABS: *ANCA ATYPICAL p-ANCA <1:20 titer (Neg:<1:20); *ANCA CYTOPLASMIC (C-ANCA) <1:20 titer (Neg:<1:20); *ANCA PERINUCLEAR (P-ANCA) <1:20 titer (Neg:<1:20)
== END 2018-10-31 21:52 | disposition home or self-care (01) | DRG 48 ==
LOC: MEDSG2 10-29 00:54
PROVIDERS: ADMIT Hospitalist; ATTEND Hospitalist
DX: E10.43 Type 1 diabetes mellitus with diabetic autonomic (poly)neuropathy (principal); E10.65 Type 1 diabetes mellitus with hyperglycemia; K50.00 Crohn's disease of small intestine without complications; E83.39 Other disorders of phosphorus metabolism; E44.1 Mild protein-calorie malnutrition; E10.40 Type 1 diabetes mellitus with diabetic neuropathy, unspecified; K52.9 Noninfective gastroenteritis and colitis, unspecified; K31.84 Gastroparesis; I10 Essential (primary) hypertension; Z87.11 Personal history of peptic ulcer disease; Z91.14 Patient's other noncompliance with medication regimen; Z91.19 Patient's noncompliance with other medical treatment and regimen; Z86.59 Personal history of other mental and behavioral disorders; E87.6 Hypokalemia; K50.90 Crohn's disease, unspecified, without complications; F19.10 Other psychoactive substance abuse, uncomplicated; Z79.4 Long term (current) use of insulin; Z79.899 Other long term (current) drug therapy
CPT/HCPCS: 36415; 80048-TC; 80053-TC; 82962-TC; 83520; 83735-TC; 84100-TC; 85025-TC; 86140-TC; 86256; 87081-TC; G0378; J0360; J1170; J1815; J2405; J2765; J3490; J7030; J7042; J7070

== ENCOUNTER 2018-12-04 23:16 | Inpatient (IN) | payer OTHER ==
[~2018-12-04] VITALS: Ht 170.2 cm; Wt 59.9 kg
[~2018-12-04 23:16] MED LIST changes: +INSU100V7 SQ; -ONDA4TAB5 PO; -ZOLP10TA2 PO
--- NOTE | 2018-12-04 23:30 | NUR ---
RN MS ADMISSION NOTES RECEIVED PATIENT DIRECT ADMIT FROM [facility] VIA GURNEY. DX.HYPERGLYCEMIA. PATIENT IS ALERT AND ORIENTED X4, VERBALLY RESPONSIVE, ABLE TO MAKE NEEDS KNOWN. BREATHING EVEN AND UNLABORED. NO SOB NOTED. TOLERATING ROOM AIR. WITH COMPLAINTS OF ABDOMINAL PAIN 8-9/10 SHARP AND ACHING. INFORMED PATIENT THAT I AM WAITING FOR MD TO PUT IN ADMISSION ORDERS - VERBALIZED UNDERSTANDING. PATIENT NOTED WITH RIGHT UPPER ARM PICC LINE AND LEFT FOREARM IV G#22 - BOTH INTACT AND PATENT. SKIN DRY AND WARM TO TOUCH. PATIENT IS CONTINENT. AMBULATORY WITH ASSIST. PER PATIENT HE USES A CANE AT HOME. ORIENTED TO THE USE OF UNIT AMENITIES. INSTRUCTED ON THE USE OF CALL LIGHT WITH. PATIENT INFORMED OF SKIN ASSESSMENT AND AGREED. BELONGINGS ACCOUNTED FOR. ALL OTHER NEEDS ATTENDED TO. SAFETY MEASURES IN PLACE. CALL LIGHT WITHIN REACH. WILL CONTINUE TO MONITOR.
[2018-12-04 23:45] VITALS: BP 147/97
[2018-12-05] MEDS ORDERED: IBUP-1957 PO (00:05)
[2018-12-05] MEDS ORDERED: HYOS0.1275 SL (00:11)
[2018-12-05] MEDS ORDERED: INSU100I34 SQ (00:11)
[2018-12-05] MEDS ORDERED: TRAM50TA2 PO (00:11)
[2018-12-05] MEDS ORDERED: ONDA4TAB11 PO (00:11)
[2018-12-05] MEDS ORDERED: ZOLP5TAB8 PO (00:11)
[2018-12-05] MEDS ORDERED: NAPR500T6 PO (00:11)
--- NOTE | 2018-12-05 00:18 | NUR ---
RN MS NOTES PAGED DR. MCNALLY FOR ADMISSION ORDERS WELL MED RECON. PER DR. MCNALLY HE WILL PUT THEM IN. WILL CONTINUE TO MONITOR.
[2018-12-05] MEDS ORDERED: IV NS 0.9% 1,000 ML IV PRN (00:42)
[2018-12-05] MEDS: MORPHINE SULFATE INJ 2 MG/ML DISP.SYRIN IV PRN ×3 (00:46→10:53)
[2018-12-05] MEDS ORDERED: ONDANSETRON HCL/PF 4 MG/2 ML VIAL IVP PRN (01:00)
[2018-12-05] MEDS ORDERED: MAGNESIUM HYDROXIDE 30 ML UDC PO PRN (01:00)
[2018-12-05] MEDS ORDERED: ACETAMINOPHEN 325 MG TABLET PO PRN (01:00)
[2018-12-05] MEDS ORDERED: MORPHINE SULFATE INJ 2 MG/ML DISP.SYRIN IM PRN (01:00)
[2018-12-05] MEDS ORDERED: Z GUARD REMEDY 2 OZ OINT TP PRN (01:00)
[2018-12-05] MEDS ORDERED: MAG HYDROX/AL HYDROX/SIMETH 30 ML UDC PO PRN (01:00)
[2018-12-05] MEDS ORDERED: DEXTROSE 50%-WATER 50 ML DISP.SYRIN IV PRN ×2 (01:00→10:30)
[2018-12-05] MEDS ORDERED: HYDROCODONE/APAP 5/325MG 1 EACH TABLET PO PRN ×2 (01:00→10:30)
[2018-12-05] MEDS ORDERED: ZOLPIDEM TARTRATE 5 MG TABLET PO PRN ×2 (01:00→10:30)
[2018-12-05] MEDS ORDERED: *INSULIN REGULAR(HUMULIN R)HUM 100 UNIT/ML VIAL SQ PRN (01:00)
[2018-12-05 01:11] LABS: BASOPHILS # (AUTO) 0.1 /CMM (0.0-0.2); BASOPHILS % (AUTO) 1.1 % (0.0-2.0); EOSINOPHILS % (AUTO) 3.7 % (0.0-6.0); HEMATOCRIT 31 % (39-51); HEMOGLOBIN 10.5 g/dL (13.5-17.5); LYMPHOCYTES # (AUTO) 1.5 /CMM (0.8-4.8); LYMPHOCYTES % (AUTO) 23.7 % (20.0-44.0); MEAN CORPUSCULAR HGB CONC 34 g/dl (31.0-36.0); MEAN CORPUSCULAR VOLUME 95 fL (80-96); MONOCYTES # (AUTO) 0.4 /CMM (0.1-1.30); MONOCYTES % (AUTO) 5.9 % (2.0-12.0); NEUTROPHILS % (AUTO) 65.6 % (43.0-81.0); PLATELET COUNT (AUTO) 151 /CMM (150-450); RED BLOOD CELL COUNT(AUTO) 3.29 MIL/uL (4.5-6.0); WHITE BLOOD COUNT (AUTO) 6.2 K/uL (4.3-11.0)
[2018-12-05 01:22] LABS: ALANINE AMINOTRANSFERASE 27 U/L (12-78); ALBUMIN 3.1 g/dL (3.4-5.0); ALKALINE PHOSPHATASE 63 U/L (46-116); ASPARTATE AMINOTRANSFERASE 12 U/L (15-37); BILIRUBIN,TOTAL 0.3 mg/dL (0.2-1.0); CALCIUM, SERUM 8.3 mg/dL (8.5-10.1); CARBON DIOXIDE 29 mmol/L (21-32); CHLORIDE 109 mmol/L (98-107); CREATININE 0.7 mg/dL (0.6-1.3); GLUCOSE 118 mg/dL (74-106); MAGNESIUM 1.9 mg/dL (1.8-2.4); PHOSPHORUS 2.8 mg/dL (2.5-4.9); POTASSIUM 3.6 mmol/L (3.5-5.1); SODIUM SERUM 145 mmol/L (136-145); UREA NITROGEN, BLOOD 20 mg/dL (7-18)
[2018-12-05] MEDS: METOCLOPRAMIDE HCL 10 MG/2 ML VIAL IV SCH ×3 (02:07→12:19)
[2018-12-05] MEDS: INSULIN REGULAR, HUMAN 100 UNIT/ML 3 ML VIAL SQ PRN ×2 (06:34→17:43)
--- NOTE | 2018-12-05 06:54 | NUR ---
RN MS CLOSING NOTES PATIENT RESTING IN BED. NO ACUTE CHANGES THROUGHOUT SHIFT. BREATHING EVEN AND UNLABORED. NO SOB NOTED. TOLERATING ROOM AIR. ABDOMINAL PAIN CONTROLLED BY PAIN MEDICATION. LAST MEDICATION GIVEN ABOUT AN HOUR AGO AND TOLERATED WELL. RIGHT UPPER ARM PICC LINE AND LEFT FOREARM IV G#22 - BOTH INTACT AND PATENT WITH IVF INFUSING. ALL OTHER NEEDS ATTENDED TO. SAFETY MEASURES IN PLACE. CALL LIGHT WITHIN REACH. WILL ENDORSE TO ONCOMING NURSE FOR DUANE.
[2018-12-05] MEDS ORDERED: BLOOD SUGAR DIAGNOSTIC 1 EACH STRIP VI SCH (07:30)
[2018-12-05] MEDS ORDERED: INSU100I26 SQ (07:32)
[2018-12-05] MEDS ORDERED: GABA-532 PO (07:32)
[2018-12-05] MEDS ORDERED: BLOO-668 IN (07:32)
[2018-12-05] MEDS ORDERED: INSU100V27 SQ (07:32)
--- NOTE | 2018-12-05 07:45 | NUR ---
MS RN OPENING NOTES PATIENT AWAKE IN BED, RESTING COMFORTABLY. PATIENT COMPLAINS OF NO PAIN OR DISCOMFORT AT THIS TIME. PATIENT BREATHING ON ROOM AIR. PATIENT BREATHING IS EVEN AND UNLABORED. PATIENT IN NO ACUTE DISTRESS. NO SOB NOTED. IVS PATENT AND INTACT. SAFETY MEASURES IN PLACE. PATIENT BED IS LOCKED AND IN LOWEST POSITION. CALL LIGHT WITHIN REACH. WILL CONTINUE TO MONITOR.
[2018-12-05 08:00] VITALS: BP 128/85
--- NOTE | 2018-12-05 09:15 | NUR ---
MS RN NOTES NOTIFIED AND CONTACTED DR. ROMERO ABOUT MED RECON LIST TO BE INPUT. MD AWARE. PATIENT IN NO ACUTE DISTRESS. PATIENT RESTING COMFORTABLY IN BED. WILL CONTINUE TO MONITOR.
[2018-12-05] MEDS ORDERED: METOCLOPRAMIDE HCL 10 MG TABLET PO PRN (10:30)
[2018-12-05] MEDS ORDERED: TRAMADOL HCL 50 MG TABLET PO PRN (10:30)
[2018-12-05] MEDS ORDERED: ONDANSETRON 4 MG TAB.RAPDIS PO PRN (10:30)
[2018-12-05] MEDS ORDERED: ESCITALOPRAM OXALATE (10 MG) 10 MG TABLET PO SCH (10:30)
[2018-12-05] MEDS ORDERED: IBUPROFEN 800 MG TABLET PO PRN (10:30)
[2018-12-05] MEDS ORDERED: IBUPROFEN 400 MG TABLET PO PRN (10:30)
[2018-12-05] MEDS ORDERED: INSULIN REGULAR, HUMAN 100 UNIT/ML 3 ML VIAL SQ PRN (10:30)
[2018-12-05] MEDS ORDERED: PANTOPRAZOLE 40 MG TABLET.DR PO SCH (10:30)
[2018-12-05] MEDS: GABAPENTIN 100 MG CAPSULE PO SCH ×3 (10:53→17:33)
[2018-12-05] MEDS: BLOOD SUGAR DIAGNOSTIC 1 EACH STRIP IN SCH ×2 (11:47→17:35)
[2018-12-05] MEDS ORDERED: BLOOD SUGAR DIAGNOSTIC 1 EACH STRIP IN SCH (12:00)
[2018-12-05] MEDS: SUCRALFATE 1 G TABLET PO SCH ×2 (12:19→17:33)
[2018-12-05 16:00] VITALS: BP 159/94
[2018-12-05 17:00] VITALS: BP 143/77
[2018-12-05] MEDS ORDERED: NAPROXEN 500 MG TABLET PO SCH (17:00)
[2018-12-05] MEDS ORDERED: HYDROCODONE/APAP 5/325MG 1 EACH TABLET PO ONE (17:30)
--- NOTE | 2018-12-05 18:45 | NUR ---
MS RN NOTES PATIENT IN STABLE CONDITION AND IS DISCHARGED TO HOME. MD AWARE OF DISCHARGE. PATIENT BREATHING ON ROOM AIR. PATIENT IN NO ACUTE DISTRESS. NO SOB NOTED. VITAL SIGNS STABLE. PATIENT HAD 2/10 ABDOMINAL PAIN, PATIENT STATED HE TOLERATED IT WELL AND IS IN NO MORE DISCOMFORT FROM ABDOMINAL PAIN. PATIENT IVS REMOVED. ID BAND REMOVED. SKIN ASSESSED. NO NEW SKIN BREAKDOWN NOTED. PATIENT SIGNED BELONGINGS LIST AND IS IN CHART. PATIENT STATED HE HAS ALL BELONGINGS WITH HIM. ALL NURSING NEEDS MET. EXPLAINED DISCHARGE INSTRUCTIONS, PATIENT VERBALIZED UNDERSTANDING. DISCHARGE PACKET WITH PATIENT. PATIENT IS AMBULATORY AND IS USING BUS PASS TRANSPORTATION TO HOME.
[2018-12-05] MEDS ORDERED: INSULIN GLARGINE, 100 UNIT/ML CARTRIDGE SQ SCH (22:00)
== END 2018-12-05 18:49 | disposition home or self-care (01) | DRG 48 ==
LOC: MED 23:16
PROVIDERS: ADMIT Internal Medicine; ATTEND Internal Medicine
DX: E11.43 Type 2 diabetes mellitus with diabetic autonomic (poly)neuropathy (principal); E11.65 Type 2 diabetes mellitus with hyperglycemia; K31.84 Gastroparesis; K29.70 Gastritis, unspecified, without bleeding; F32.9 Major depressive disorder, single episode, unspecified; E11.40 Type 2 diabetes mellitus with diabetic neuropathy, unspecified; E44.1 Mild protein-calorie malnutrition; Z91.19 Patient's noncompliance with other medical treatment and regimen; F19.10 Other psychoactive substance abuse, uncomplicated; D64.9 Anemia, unspecified
CPT/HCPCS: 36415; 80053-TC; 82962-TC; 83735-TC; 84100-TC; 84484-TC; 85025-TC; 87081-TC; G0378; J1815; J2270; J2405; J2765; J7030

== ENCOUNTER 2020-06-10 18:44 | Emergency (ER) | payer OTHER ==
[~2020-06-10] VITALS: Ht 170.2 cm; Wt 76.7 kg
[~2020-06-10 18:44] MED LIST changes: +BLOO-668 IN; +GABA-532 PO; -GABA-536 PO; +IBUP-1957 PO; +INSU100I26 SQ; +INSU100V27 SQ; -INSU100V7 SQ; +NAPR500T6 PO; +ONDA4TAB11 PO; -PANT40TA4 PO; +PANT40TA49 PO; +TRAM50TA2 PO; +ZOLP5TAB8 PO
--- NOTE | 2020-06-10 19:13 | NUR ---
PT AAOX4. C/O NAUSEA, VOMITING, AND ABDOMINAL PAIN X 3 DAYS. MD AT BEDSIDE FOR EVAL. AWAITING ORDERS.
[2020-06-10 19:36] LABS: BASOPHILS # (AUTO) 0.1 /CMM (0.0-0.2); BASOPHILS % (AUTO) 1.3 % (0.0-2.0); EOSINOPHILS % (AUTO) 3.5 % (0.0-6.0); HEMATOCRIT 39 % (39-51); HEMOGLOBIN 12.6 g/dL (13.5-17.5); LYMPHOCYTES # (AUTO) 1.3 /CMM (0.8-4.8); LYMPHOCYTES % (AUTO) 20.8 % (20.0-44.0); MEAN CORPUSCULAR HGB CONC 32 g/dl (31.0-36.0); MEAN CORPUSCULAR VOLUME 96 fL (80-96); MONOCYTES # (AUTO) 0.3 /CMM (0.1-1.30); MONOCYTES % (AUTO) 5.7 % (2.0-12.0); NEUTROPHILS # (AUTO) 4.2 /CMM (1.8-8.9); NEUTROPHILS % (AUTO) 68.7 % (43.0-81.0); PLATELET COUNT (AUTO) 181 /CMM (150-450); RED BLOOD CELL COUNT(AUTO) 4.07 MIL/uL (4.5-6.0); WHITE BLOOD COUNT (AUTO) 6.1 K/uL (4.3-11.0)
[2020-06-10] MEDS: IV NS 0.9% 1,000 ML BAG IV ONE (19:45)
[2020-06-10] MEDS ORDERED: METOCLOPRAMIDE HCL 10 MG/2 ML VIAL ONE (19:46)
[2020-06-10] MEDS ORDERED: MORPHINE SULFATE INJ 2 MG/ML DISP.SYRIN ONE (19:46)
[2020-06-10] MEDS ORDERED: MORPHINE SULFATE INJ 4 MG/ML DISP.SYRIN ONE (19:46)
[2020-06-10] MEDS ORDERED: LORAZEPAM INJ 2 MG/ML VIAL ONE (19:47)
[2020-06-10] MEDS: MORPHINE SULFATE INJ 2 MG/ML DISP.SYRIN IV ONE (19:49)
[2020-06-10] MEDS: LORAZEPAM INJ 2 MG/ML VIAL IV ONE (19:50)
[2020-06-10 19:57] LABS: CALCIUM, SERUM 9.3 mg/dL (8.5-10.1); CREATININE 1.1 mg/dL (0.6-1.3); POTASSIUM 4.5 mmol/L (3.5-5.1)
[2020-06-10] MEDS: METOCLOPRAMIDE HCL 10 MG/2 ML VIAL IV ONE (19:59)
[2020-06-10 20:03] LABS: ALBUMIN 3.4 g/dL (3.4-5.0); BILIRUBIN,DIRECT 0.1 mg/dL (0.0-0.2); BILIRUBIN,TOTAL 0.2 mg/dL (0.2-1.0); TOTAL PROTEIN, SERUM 7.1 g/dL (6.4-8.2)
--- NOTE | 2020-06-10 21:37 | NUR ---
PATIENT READY TO BE DISCHARGED, AWAITING RIDE.
--- NOTE | 2020-06-10 22:03 | NUR ---
Patient discharged to home in stable condition. Written and verbal after care instructions given. Patient verbalizes understanding of instruction.
--- NOTE | 2020-06-10 22:03 | NUR ---
IV removed. Catheter intact and site benign. Pressure and 4x4 applied to site. No bleeding noted.
[2020-06-10 22:55] VITALS: BP 129/89
== END 2020-06-10 22:56 | disposition home or self-care (01) ==
LOC: ER 18:48
DX: E11.43 Type 2 diabetes mellitus with diabetic autonomic (poly)neuropathy (principal); K31.84 Gastroparesis; R11.2 Nausea with vomiting, unspecified; I10 Essential (primary) hypertension; Z98.890 Other specified postprocedural states; Z91.013 Allergy to seafood; Z79.4 Long term (current) use of insulin; Z79.899 Other long term (current) drug therapy
CPT/HCPCS: 36415; 80048; 80076; 82962; 83690; 85025; 96361; 96374; 96375; 99284; J2060; J2270 ×2; J2765; J7030